=== PATIENT | female | born 1980 | race Caucasian/White ===

== ENCOUNTER 2021-06-13 15:36 | Observation (INO) ==
[2021-06-13] MEDS ORDERED: KETOROLAC TROMETHAMINE 15 MG/ML VIAL IV ONE (16:00)
[2021-06-13] MEDS ORDERED: MoRPHine SULFATE 4 MG/ML 1 ML CARP\\VIAL IV STA (16:00)
[2021-06-13] MEDS ORDERED: SODIUM CHLORIDE 0.9% 1000ML 1,000 ML IV SCH (16:01)
--- NOTE | 2021-06-13 16:15 | Emergency Department Note ---
Impression & Plan Post-operative pain, S/P ureteral stent placement, Left flank pain ED Provider Note CHIEF COMPLAINT: Left flank pain HISTORY OF PRESENT ILLNESS: Gena Hernandez is a 41 year old female with history of 10 mm calculus in the left UVJ s/p ureteral stent placement by Dr. Veloz earlier this afternoon who presents to the Emergency Department for evaluation of severe pain to her left flank radiating to her left lower abdominal quadrant which she developed about 2 hours prior to arrival. The patient states that she was initially feeling well following her procedure, however, about 20 minutes after leaving the hospital she then developed the severe pain to her left flank. She did take Oxybutynin and Tylenol without relief of her symptoms. 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 Currently, she rates her discomfort as a 10/10 which worsens with movements. She denies having any fevers/chills, chest pain, shortness of breath, palpitations, nausea, vomiting or diarrhea. She has urinated x 1 since the procedure and noted some burning pains and humrea blood. No other acute complaints. REVIEW OF SYSTEMS: 10 systems were reviewed and were negative unless otherwise stated in HPI as above PHYSICAL EXAM: VITALS: Vitals are noted on the nurse's note and reviewed by myself. Vital signs stable. General: Writhing around in bed, complaining of pain to her left flank HEENT: Normocephalic, atraumatic, PERRL, EOMI, mucous membranes moist, oropharynx clear Neck: Supple, non-tender Resp: Good inspiratory effort on room air, lung sounds clear bilaterally CV: Regular rate and rhythm, peripheral pulses palpated Back: Tender to palpation and percussion over the left flank, right side non- tender Abd: Soft, non-distended, tender to palpation over the left lower quadrant, no rebound, guarding or rigidity MSK: Moving all extremities without apparent pain or difficulty Integumentary: Warm, dy, no appreciable rashes Neuro: Awake, alert and oriented x 3, interacting and answering questions appropriately Differential diagnosis includes post-operative pain, ureteral stent dislodgement/occlusion, renal colic, nephrolithiasis, urinary tract infection, pyelonephritis, among others were considered EMERGENCY DEPARTMENT COURSE: Physical exam and history were performed. Nursing triage notes, EMR, and medication list were personally reviewed. Patient appears to have severe pain to her left flank radiating into her left lower abdominal quadrant which she developed about 2 hours prior to arrival status post left ureteral stent placement for a 10 mm calculus in the left UVJ with Dr. Veloz earlier this afternoon. Additional history as described above. On exam, she was writhing around in bed, complaining of pain to her left flank. She did have tenderness to palpation and percussion over the left flank, right side nontender. Her abdomen was soft, nondistended, tender to palpation over the left lower quadrant. No rebound, guarding or rigidity. No other significant findings on exam. IV access was established and the patient was given NSS 1 L, Toradol 15 mg, and morphine 4 mg. Labs were obtained and reviewed by myself as below. Of note, she does have mild leukocytosis with a WBC of 11.25, likely from surgery today. No concern for anemia with hemoglobin 14.8. Electrolytes WNL. Renal indices stable. LFTs nondiagnostic. I did contact Dr. Veloz of urology and discussed the patient's case. He recommended adding a dose of Flomax and trying to get her pain under control. He did not recommend additional imaging or work-up at this time. The patient was administered Flomax. Upon reevaluation, she was still having discomfort. She was given a dose of oxycodone 5 mg to see if her pain could be controlled without IV medications. Upon reevaluation, the patient was still having discomfort and stated that it was now becoming worse. I did call Dr. Veloz back and he agreed to evaluate the patient at bedside. Following Dr. Veloz's evaluation and discussion at bedside, he decided to admit the patient to the hospital for ongoing management. The patient verbalized understanding and agreement with the treatment plan as above. The chart was completed utilizing [employer] Speech Voice Recognition Software. Grammatical errors, random word insertions, pronoun errors, and incomplete sentences are an occasional consequence of this system due to software limitations, ambient noise, and hardware issues. Any formal questions or concerns about the content, text, or information contained within the body of this dictation should be directly addressed to the provider for clarification. Past Med/Surg History Medical History History of COVID-19 02/2021>MILD SYMPTOMS *FEELING BETTER Kidney stones Surgical History H/O wisdom tooth extraction S/P ureteral stent placement Family History Other No family history of adverse response to anesthesia Social History Smoking Status: Current some day smoker Tobacco Type: Cigarettes Cigarettes Per Day: SMOKES OCCAS. 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 Beliefs That Will Affect Care: None marital status: Current Living Situation: Family current occupational status: employed Feels Safe at Home: Yes Safety Concerns: Feels Safe At This Time Assistive Devices: None Allergies Allergies Allergy/AdvReac Type Severity Reaction Status Date / Time Penicillins Allergy Mild Rash Verified 06/13/21 17:58 Home Meds Home Medications Medication Instructions Recorded Confirmed ibuprofen 200 mg tablet 800 mg PO Q6H PRN 06/12/21 06/13/21 multivitamin 1 tab PO QAM 06/12/21 06/13/21 ondansetron HCl 4 mg tablet 4 mg PO Q6H PRN 06/12/21 06/13/21 Previous Rx's Medication Instructions Recorded docusate sodium 100 mg capsule 100 mg PO BID #20 cap 06/13/21 (Col-Rite) oxybutynin chloride 5 mg 5 mg PO DAILY #20 tab 06/13/21 tablet,extended release 24 hr (Ditropan XL) oxycodone 5 mg capsule 5 mg PO Q6H PRN #15 tab 06/13/21 sulfamethoxazole 800 1 tab PO BID PRN 3 Days #6 tab 06/13/21 mg-trimethoprim 160 mg tablet (Bactrim DS) tamsulosin 0.4 mg capsule (Flomax) 0.4 mg PO DAILY #20 cap 06/13/21 Results & Data (ED) Vital Signs Vital Signs - 24 hr 06/13/21 15:39 06/13/21 17:36 Temperature 36.7 C Temperature Source Temporal Artery Scan Pulse Rate 95 H Pulse Rate [Apical] 60 Pulse Rhythm Regular Pulse Strength Normal Respiratory Rate 20 18 Respiratory Effort / Characteristics Non-Labored Spontaneous Respiratory Depth Normal Respiratory Pattern Regular Blood Pressure 129/82 Blood Pressure [Left Arm] 115/75 Blood Pressure Mean 97 Blood Pressure Mean [Left Arm] 88 Blood Pressure Position Sitting Pulse Oximetry 96 98 Oxygen Delivery Method Room Air Room Air Sepsis Recent Fever Within 48 Hours No Sepsis New/Unexplained Change in Mental Status N/A Sepsis Action Taken by Nursing No Action Required Laboratory Data Result diagrams: 06/13/21 15:45 06/13/21 15:45 Lab Results 06/13/21 06/13/21 Range/Units 15:45 15:45 WBC 11.25 H (4.8-10.8) K/uL RBC 4.64 (4.2-5.4) M/uL Hgb 14.8 (12.0-16.0) g/dL Hct 43.8 (37-47) % MCV 94.4 (80-100) fL MCH 31.9 (25-34) pg MCHC 33.8 (32-36) g/dL RDW Std Deviation 43.8 (36.4-46.3) fL RDW Coeff of Aime 12.7 (11.5-14.5) % Plt Count 335 (130-400) K/uL MPV 10.6 H (7.4-10.4) fL Immature Gran % (Auto) 0.2 % Neut % (Auto) 88.3 % Lymph % (Auto) 10.3 % Peach % (Auto) 0.9 % Eos % (Auto) 0.1 % Baso % (Auto) 0.2 % Neut # (Auto) 9.94 H (1.4-6.5) K/uL Lymph # (Auto) 1.16 L (1.2-3.4) K/uL Peach # (Auto) 0.10 L (0.11-0.59) K/uL Eos # (Auto) 0.01 (0-0.5) K/uL Baso # (Auto) 0.02 (0-0.2) K/uL Immature Gran # (Auto) 0.02 (0.00-0.02) K/uL Sodium 138 (136-145) mmol/L Potassium 4.1 (3.5-5.1) mmol/L Chloride 107 (98-107) mmol/L Carbon Dioxide 26 (21-32) mmol/L Anion Gap 5 (3-11) BUN 13 (6-23) mg/dl Creatinine 0.85 (0.6-1.2) mg/dl Est Cr Clr Drug Dosing Not Reportable Est GFR ( Amer) 98.6 ml/min Est GFR (Non-Af Amer) 85.1 ml/min BUN/Creatinine Ratio 15.3 (10-20) Glucose 130 H (70-99(Fasting)) mg/dl Calcium 9.9 (8.5-10.1) mg/dl Total Bilirubin 0.4 (0.2-1.0) mg/dl AST 27 (13-39) U/L ALT 44 (7-52) U/L Alkaline Phosphatase 57 (34-104) U/L Total Protein 7.2 (6.0-8.3) gm/dl Albumin 4.5 (3.4-5.0) gm/dl Globulin 2.7 (2.5-4.0) gm/dl Albumin/Globulin Ratio 1.7 (0.9-2) Administered Medications Acetaminophen (Acetaminophen 500 Mg Tab) 1,000 mg PO Q8H ZEUS Stop: 07/13/21 21:59 Last Admin: 06/14/21 05:37 Dose: 1,000 mg Documented by: [id number] Admin: 06/13/21 22:24 Dose: 1,000 mg Documented by: [id number] Ketorolac Tromethamine (Ketorolac Tromethamine 15 Mg/Ml Vial) 15 mg IV Q6H ZEUS Stop: 06/18/21 21:59 Last Admin: 06/14/21 05:37 Dose: 15 mg Documented by: [id number] Admin: 06/13/21 23:23 Dose: 15 mg Documented by: [id number] Oxycodone HCl (Oxycodone Hcl Ir 5 Mg Tab (Immediate Release)) 5 mg PO Q6H PRN PRN Reason: Pain Stop: 06/27/21 18:11 Last Admin: 06/14/21 04:03 Dose: 5 mg Documented by: [id number] Admin: 06/13/21 22:25 Dose: 5 mg Documented by: [id number] Trimethoprim/Sulfamethoxazole (Sulfamethoxazole/Trimethoprim Ds 800/160mg Tab) 1 tab PO Q12 ZEUS Stop: 06/15/21 21:29 Last Admin: 06/14/21 09:09 Dose: 1 tab Documented by: [id number] Admin: 06/13/21 22:24 Dose: 1 tab Documented by: [id number] Discontinued Medications Hydromorphone HCl (Hydromorphone Inj 0.5 Mg/0.5 Ml Syr) 0.5 mg IV Q6H PRN PRN Reason: Pain Stop: 06/27/21 18:18 Last Admin: 06/13/21 19:17 Dose: 0.5 mg Documented by: [id number] Sodium Chloride (Nss 1000ml) 1,000 mls @ 999 mls/hr IV .Q1H1M ZEUS Stop: 06/13/21 17:01 Last Infusion: 06/13/21 17:09 Dose: 0 mls/hr Documented by: [id number] Admin: 06/13/21 16:06 Dose: 999 mls/hr Documented by: [id number] Lactated Ringer's (Lr) 1,000 mls @ 75 mls/hr IV .[id number] ZEUS Stop: 07/13/21 18:14 Last Admin: 06/14/21 10:19 Dose: Not Given Documented by: [id number] Infusion: 06/14/21 10:18 Dose: 0 mls/hr Documented by: [id number] Infusion: 06/14/21 07:08 Dose: 75 mls/hr Documented by: [id number] Admin: 06/13/21 19:24 Dose: 75 mls/hr Documented by: [id number] Ketorolac Tromethamine (Ketorolac Tromethamine 15 Mg/Ml Vial) 15 mg IV NOW ONE Stop: 06/13/21 16:01 Last Admin: 06/13/21 16:05 Dose: 15 mg Documented by: [id number] Morphine Sulfate (Morphine Sulfate 4 Mg/Ml 1 Ml Carp\Vial) 4 mg IV NOW STA Stop: 06/13/21 16:01 Last Admin: 06/13/21 16:06 Dose: 4 mg Documented by: [id number] Oxycodone HCl (Oxycodone Hcl Ir 5 Mg Tab (Immediate Release)) 5 mg PO NOW STA Stop: 06/13/21 17:16 Last Admin: 06/13/21 17:37 Dose: 5 mg Documented by: [id number] Tamsulosin HCl (Tamsulosin Hcl 0.4 Mg Cap) 0.4 mg PO NOW ONE Stop: 06/13/21 16:28 Last Admin: 06/13/21 17:00 Dose: 0.4 mg Documented by: [id number] Discharge Plan Visit Data Chief Complaint: Flank Pain Stated Complaint: STENT PUT IN THIS AM, NOW IN SEVERE PAIN ED Provider: Lucas Sandoval ED Midlevel Provider: Diane Salcedo Discharge Problem: Post-operative pain, S/P ureteral stent placement, Left flank pain Patient Disposition: Admitted As Inpatient Discharge Instructions Interventions: ED Discharge Assessment Last Done: 06/13/21 20:44
[2021-06-13] MEDS ORDERED: TAMSULOSIN HCL 0.4 MG CAP PO ONE (16:27)
[2021-06-13 16:46] LABS: Basophils # (auto) 0.02 K/uL (0-0.2); Basophils % (auto) 0.2 %; Eosinophils # (auto) 0.01 K/uL (0-0.5); Eosinophils % (auto) 0.1 %; Hematocrit (blood only) 43.8 % (37-47); Hemoglobin 14.8 g/dL (12.0-16.0); Immature Granulocytes # (auto) 0.02 K/uL (0.00-0.02); Immature Granulocytes % (auto) 0.2 %; Lymphocytes # (auto) 1.16 K/uL (1.2-3.4); Lymphocytes % (auto) 10.3 %; Mean Corpuscular Hemoglobin 31.9 pg (25-34); Mean Corpuscular Hgb Conc 33.8 g/dL (32-36); Mean Corpuscular Volume 94.4 fL (80-100); Mean Platelet Volume 10.6 fL (7.4-10.4); Monocytes % (auto) 0.9 %; Neutrophils # (auto) 9.94 K/uL (1.4-6.5); Neutrophils % (auto) 88.3 %; Platelet Count 335 K/uL (130-400); RDW Coefficient of Variation 12.7 % (11.5-14.5); RDW Standard Deviation 43.8 fL (36.4-46.3); Red Blood Count 4.64 M/uL (4.2-5.4); White Blood Count 11.25 K/uL (4.8-10.8)
[2021-06-13 17:04] LABS: Alanine Aminotransferase 44 U/L (7-52); Albumin Globulin Ratio 1.7 (0.9-2); Albumin Level 4.5 gm/dl (3.4-5.0); Alkaline Phosphatase 57 U/L (34-104); Anion Gap 5 (3-11); Aspartate Aminotransferase 27 U/L (13-39); BUN Creatinine Ratio 15.3 (10-20); Bilirubin,Total 0.4 mg/dl (0.2-1.0); Blood Urea Nitrogen 13 mg/dl (6-23); Calcium 9.9 mg/dl (8.5-10.1); Carbon Dioxide 26 mmol/L (21-32); Chloride 107 mmol/L (98-107); Est GFR (African American) 98.6 ml/min; Est GFR (Non-African American) 85.1 ml/min; Globulin 2.7 gm/dl (2.5-4.0); Glucose 130 mg/dl (70-99(Fasting)); Potassium 4.1 mmol/L (3.5-5.1); Sodium 138 mmol/L (136-145); Total Protein 7.2 gm/dl (6.0-8.3)
[2021-06-13] MEDS ORDERED: oxyCODONE HCL IR 5 MG TAB (IMMEDIATE RELEASE) PO STA (17:15)
[2021-06-13] MEDS ORDERED: ONDANSETRON INJ 2 MG/ML 2 ML VIAL IV PRN (18:06)
[2021-06-13] MEDS ORDERED: HYDROmorphone INJ 0.5 MG/0.5 ML SYR IV PRN (18:19)
--- NOTE | 2021-06-13 18:26 | History & Physical Report ---
Date of Service June 13, 2021 Assessment & Plan (1) Kidney stone: (2) Complication of urinary stent: Plan: 41-year-old female status post cystoscopy with left ureteral stent placement today for left distal ureteral calculus who presented to the ED with intractable left stent colic. Plan: 1. Admit to urology on the floor 2. Pain control with scheduled Tylenol and Toradol. As needed Dilaudid, oxycodone and Zofran. She received Flomax and Ditropan prior to admission and is not due for this for another 24 hours. 3. Regular diet 4. IV fluids LR 75 an hour 5. Did offer her Coreas catheter for comfort but she declined at this time. She is voiding spontaneously. 6. Bactrim twice daily for prophylaxis until culture finalizes 7. Hope is that pain control will be improved tomorrow morning and she will be stable for discharge. She is scheduled for definitive stone treatment on 06/21/2021. 8. I had a lengthy discussion with her and her explaining reasoning for stent placement and why we cannot go back and treat the stone acutely. They expressed understanding. History of Present Illness Chief Complaint: Left ureteral stent colic Primary Care Provider: Ángel Iam 41-year-old female who is status post cystoscopy with left retrograde pyelogram and left ureteral stent placement for a left distal ureteral calculus earlier today at the surgery center. On her way home, she developed intractable left flank pain and presented to the emergency department. She was afebrile with stable vitals. Labs showed a mild leukocytosis of 11 which is not uncommon postoperatively and creatinine was stable at 0.85. She was given Toradol, morphine, and flomax without significant improvement in her symptoms. I had a long discussion with her and her and offered her admission for pain control, which they agreed upon. I originally saw her on 06/11/2021 in clinic and outside renal ultrasound showed a left distal ureteral calculus. As she was significantly uncomfortable, I offered to add her onto my OR schedule 2 days later (today, 06/13/2021) with the caveat that if urine culture is not finalized I would only be able to place a stent. I also attempted to get a CT scan in the interim but her insurance would not approve it. Unfortunately the urine culture was still pending today so I explained it would not be safe to attempt to treat the stone and we agreed upon stent placement. Her stent procedure was without complication. Allergies Allergy/AdvReac Type Severity Reaction Status Date / Time Penicillins Allergy Mild Rash Verified 06/13/21 17:58 Home Medications Medication Instructions Recorded Confirmed Type ibuprofen 200 mg tablet 800 mg PO Q6H PRN 06/12/21 06/13/21 History multivitamin 1 tab PO QAM 06/12/21 06/13/21 History ondansetron HCl 4 mg tablet 4 mg PO Q6H PRN 06/12/21 06/13/21 History docusate sodium 100 mg capsule 100 mg PO BID #20 cap 06/13/21 06/13/21 Rx (Col-Rite) oxybutynin chloride 5 mg 5 mg PO DAILY #20 tab 06/13/21 06/13/21 Rx tablet,extended release 24 hr (Ditropan XL) oxycodone 5 mg capsule 5 mg PO Q6H PRN #15 tab 06/13/21 Rx sulfamethoxazole 800 1 tab PO BID PRN 3 Days #6 tab 06/13/21 06/13/21 Rx mg-trimethoprim 160 mg tablet (Bactrim DS) tamsulosin 0.4 mg capsule (Flomax) 0.4 mg PO DAILY #20 cap 06/13/21 06/13/21 Rx Past Med/Surg History Medical History History of COVID-19 02/2021>MILD SYMPTOMS *FEELING BETTER Kidney stones Surgical History H/O wisdom tooth extraction S/P ureteral stent placement Family History Other No family history of adverse response to anesthesia Social History Smoking Status: Current some day smoker Tobacco Type: Cigarettes Cigarettes Per Day: SMOKES OCCAS. 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 Beliefs That Will Affect Care: None marital status: Current Living Situation: Family current occupational status: employed Feels Safe at Home: Yes Assistive Devices: None Review of Systems 14 point review of systems negative outside of what is listed above in HPI Physical Exam Physical Exam: General: Alert and oriented, no acute distress HEENT: Normocephalic, mucous membranes moist Cardiovascular: Regular rate Pulmonary: Nonlabored respirations Abdomen: Nondistended Extremities: Moves all 4 spontaneously Neuro: No gross deficits Skin: Warm, dry, no rashes noted Results & Data ([facility]) Vital Signs (Past 12 Hours) Vital Signs Temp Pulse Pulse Resp BP BP Pulse Ox 06/13/21 17:36 60 18 115/75 98 06/13/21 15:39 36.7 C 95 H 20 129/82 96 Code Status & VTE Plan VTE Prophylaxis Plan VTE Prophylaxis will be ordered: No PG Care Time/CCT Total # of Minutes Spent Total Time Spent with Patient: Total time spent is greater than 50% in coordination of care (as documented) at patient's floor/unit and/or counseling patient: [place] [address] Initial Inpt Care Lvl 2 Patient Type Established Diagnoses Kidney stone N20.0 Complication of urinary stent T83.9XXA
[2021-06-13] MEDS: LACTATED RINGER'S 1,000 ML IV SCH (19:24)
[2021-06-13] MEDS: SULFAMETHOXAZOLE/TRIMETHOPRIM DS 800/160MG TAB PO SCH (22:24)
[2021-06-13] MEDS: ACETAMINOPHEN 500 MG TAB PO SCH (22:24)
[2021-06-13] MEDS: oxyCODONE HCL IR 5 MG TAB (IMMEDIATE RELEASE) PO PRN (22:25)
[2021-06-13 22:55] LABS: Appearance Urine Clear (Clear); Bacteria Urine Automated Negative (Negative); Bilirubin Urine Negative (Negative); Blood Urine 3+ (Negative); Color Urine Orange; Epithelial Cell Urine Auto 20-30 /lpf (0-5); Glucose Urine UA Negative (Negative); Ketones Urine Negative (Negative); Leukocyte Esterase Urine Trace (Negative); Nitrite Urine Negative (Negative); Protein Urine 1+ (Negative); RBC Urine Automated >30 /hpf (0-4); Specific Gravity Urine 1.007 (1.000-1.030); Urobilinogen Urine Negative (Negative); pH Urine 6.5 (4.5-7.5)
[2021-06-13] MEDS: KETOROLAC TROMETHAMINE 15 MG/ML VIAL IV SCH (23:23)
[2021-06-14] MEDS: oxyCODONE HCL IR 5 MG TAB (IMMEDIATE RELEASE) PO PRN (04:03)
[2021-06-14] MEDS: ACETAMINOPHEN 500 MG TAB PO SCH ×2 (05:37→13:14)
[2021-06-14] MEDS: KETOROLAC TROMETHAMINE 15 MG/ML VIAL IV SCH ×3 (05:37→16:15)
--- NOTE | 2021-06-14 08:19 | Discharge Summary ---
Date of Service June 14, 2021 Admission HPI Per Admitting Provider 41-year-old female who is status post cystoscopy with left retrograde pyelogram and left ureteral stent placement for a left distal ureteral calculus earlier today at the surgery center. On her way home, she developed intractable left flank pain and presented to the emergency department. She was afebrile with stable vitals. Labs showed a mild leukocytosis of 11 which is not uncommon postoperatively and creatinine was stable at 0.85. She was given Toradol, morphine, and flomax without significant improvement in her symptoms. I had a long discussion with her and her and offered her admission for pain control, which they agreed upon. I originally saw her on 06/11/2021 in clinic and outside renal ultrasound showed a left distal ureteral calculus. As she was significantly uncomfortable, I offered to add her onto my OR schedule 2 days later (today, 06/13/2021) with the caveat that if urine culture is not finalized I would only be able to place a stent. I also attempted to get a CT scan in the interim but her insurance would not approve it. Unfortunately the urine culture was still pending today so I explained it would not be safe to attempt to treat the stone and we agreed upon stent placement. Her stent procedure was without complication. Admission Exam Per Admitting Provider General: Alert and oriented, no acute distress HEENT: Normocephalic, mucous membranes moist Pulmonary: Nonlabored respirations Abdomen: Nondistended Extremities: Moves all 4 spontaneously Neuro: No gross deficits Skin: Warm, dry, no rashes noted Principal Diagnosis Left ureteral stent colic Discharge Exam General: Alert and oriented, no acute distress HEENT: Normocephalic, mucous membranes moist Pulmonary: Nonlabored respirations Abdomen: Nondistended Extremities: Moves all 4 spontaneously Neuro: No gross deficits Skin: Warm, dry, no rashes noted Discharge Data Allergies Allergy/AdvReac Type Severity Reaction Status Date / Time Penicillins Allergy Mild Rash Verified 06/13/21 17:58 Consultations 06/13/21 18:38 ED Decision to Admit Stat Hospital Course (1) Post-operative pain: (2) S/P ureteral stent placement: (3) Left flank pain: (4) Complication of urinary stent: (5) Kidney stone: 41-year-old female status post cystoscopy with left ureteral stent placement on 06/13/2021. Presented to the emergency department with intractable left flank pain due to stent colic. Admitted for pain control. Pain control was improved and patient was deemed stable for discharge home on 06/14/2021. Continue home pain regimen in anticipation of stone treatment on 06/21/2021. Total Time Total Time Spent Total Time Spent (In Minutes): 10 Discharge Plan Discharge Items Patient Disposition: Home - Self-Care Reason For Visit: URETERAL STENT COLIC Discharge Diagnosis: Left ureteral stent colic Left nephrolithiasis Activity: Resume your previous activity Lifting: Gradually increase as tolerated Bathing: No limitations Sexual Activity: When tolerated Exercise/Sports: Gradually increase as tolerated Driving/Machine Use: No limitations Weightbearing: Full weightbearing Non-emergency contact: Urologist Call non-emergency contact if: you have any medication questions, your symptoms worsen, your pain is not controlled and your temperature is above 101 Follow-up/Referrals: Ángel Vitale [Primary Care Provider] - Diet: Regular Addtl Attending Provider Instructions: -Take Tylenol and ibuprofen as needed for pain. You can take additional oxycodone if pain is not controlled. -Continue taking Pyridium as needed for stent pain, this will turn your urine orange. Oxybutynin as needed, however this can cause dry mouth, constipation and difficulty urinating so only use when necessary. -Discontinue Tamsulosin. -Take stool softener as needed to prevent constipation. -Finish your 3 days of Bactrim. -It is normal to have blood in his urine while the stent is in place. The more activity performed, the bloody your urine will be. This is okay as long as you are able to urinate. -You are scheduled for stone treatment on 06/21/21. -Call the office with worsening pain or fevers. When to call [facility] at [phone]: Your urine contains heavy blood clots or you are unable to urinate. You are constantly leaking urine. Fever of 101F or higher, chills, nausea, or vomiting. Your pain is not relieved with medication. The end of the stent comes out of your urethra. Please call our office at [phone] with any questions, concerns or need to reschedule appointments for any reason. We are happy to assist you. Pending Studies at Discharge: No Stand-Alone Forms: [facility], Smoking Cessation Medications and DC Order Prescriptions: New phenazopyridine [Pyridium] 100 mg tablet 100 mg PO BID PRN (Reason: pain) Qty: 7 RF: 0 Continued oxycodone 5 mg capsule 5 mg PO Q6H PRN (Reason: pain) Qty: 15 RF: 0 ondansetron HCl 4 mg Tablet 4 mg PO Q6H PRN (Reason: Nausea) RF: 0 ibuprofen 200 mg Tablet 800 mg PO Q6H PRN (Reason: Pain) RF: 0 multivitamin Tablet 1 tab PO QAM RF: 0 docusate sodium [Col-Rite] 100 mg capsule 100 mg PO BID Qty: 20 RF: 0 oxybutynin chloride [Ditropan XL] 5 mg tablet extended release 24 hr 5 mg PO DAILY Qty: 20 RF: 0 sulfamethoxazole-trimethoprim [Bactrim DS] 800-160 mg tablet 1 tab PO BID PRN (Reason: prophylaxis ) 3 Days Qty: 6 RF: 0 Discontinued tamsulosin [Flomax] 0.4 mg capsule 0.4 mg PO DAILY Qty: 20 RF: 0 Discharge Orders: Discharge Order (Routine); Ordered 06/14/21 Ordered By: Lexi Damon/Other Patient Handouts: Healthy Kidneys, Exercise to Help Your Kidneys, How Your Kidneys Work, Identifying Kidney Stones Admission Data Admit Date/Time: 06/13/21 18:06 Attending Provider: Alvin Veloz Admit Provider: Alvin Veloz Primary Care Provider: Ángel Vitale Other Providers: Alvin Veloz Other Interventions: Discharge Summary Assessment (RN) Last Done: 06/14/21 16:16 Coding Level of Care Code D/C DAY MANAGEMENT <30 MINS Diagnoses Post-operative pain G89.18 S/P ureteral stent placement Z96.0 Left flank pain R10.9 Complication of urinary stent T83.9XXA Kidney stone N20.0
--- NOTE | 2021-06-14 09:03 | Urology Progress Note ---
Date of Service June 14, 2021 Assessment & Plan (1) Left flank pain: (2) S/P ureteral stent placement: (3) Complication of urinary stent: Plan: 41-year-old female status post cystoscopy with left ureteral stent placement on 06/13 for left distal ureteral calculus who presented to the ED with intractable left stent colic. - Patient admitted to urology for pain control. - Pain has improved since admission with scheduled Tylenol, Toradol, prn Dilaudid, prn oxycodone. - Will attempt to transition from IV to oral pain medications today. - Will add Tamsulosin, Ditropan, PRN Pyridium for stent management. - Urine culture from 06/11 with pin-point growth, reincubating - Bactrim twice daily for prophylaxis until culture finalizes. - Voiding spontaneously, output appears adequate. Will continue to monitor. - Continue regular diet. - Encourage liberal hydration and ambulation. - Plan for definitive stone treatment as scheduled on 06/21/[address] Veloz. - Will reassess later today and possibly discharge home if pain is controlled. - Pt reassessed this afternoon. - Pain control has improved. - Requesting to be discharged home today. - Reviewed discharge instructions and plan in detail with patient. All questions were answered. - Plan to continue home pain regimen in anticipation of stone treatment on 06/21/2021. - Stable for discharge home today. Admission and Anticipated Discharge Date Admission Date: June 13, 2021 Supervising Physician Co-Signing Physician Notes Discussed patient with ISABEL. Agree with plan. Subjective Pt examined at bedside this AM. Awake, resting in bed on arrival. No acute issues overnight. No fevers. Left flank pain has slightly improved since admission with IV pain medication, but still severe at times or as meds wear off. Voiding spontaneously, reports hematuria and dysuria. Feels she is emptying her bladder well. Denies nausea or vomiting. Denies fevers or chills. No additional complaints at time of exam. Review of Systems Constitutional: as per Subjective / HPI Gastrointestinal: as per Subjective / HPI Genitourinary: as per Subjective / HPI Physical Exam Constitutional: well developed and well nourished; no acute distress Respiratory: normal respiratory effort and able to speak in complete sentences; no labored breathing and no audible wheezes Cardiovascular: Extremities: no calf tenderness Gastrointestinal (Abdomen): Inspection/Auscultation: abdomen normal to inspection; abdomen not distended Musculoskeletal: Head/Neck/Chest: normocephalic Skin: No visible rashes or lesions to exposed skin areas Neurologic: moves all extremities and awake Psychiatric: Orientation: alert, oriented x 3 and cooperative Results & Data ([facility]) Vital Signs (Past 12 Hours) Vital Signs Temp Pulse Resp BP Pulse Ox 06/14/21 07:35 36.9 C 51 L 16 91/57 L 98 06/13/21 22:42 36.2 C L 56 L 16 101/59 L 98 06/13/21 21:03 36.7 C 58 L 20 102/61 100 PG Care Time/CCT Total # of Minutes Spent Total Time Spent with Patient: Total time spent is greater than 50% in coordination of care (as documented) at patient's floor/unit and/or counseling patient: Coding Level of Care Code 84869 Subseq Hosp Care Lvl 2 Diagnoses Left flank pain R10.9 S/P ureteral stent placement Z96.0 Complication of urinary stent T83.9XXA
[2021-06-14] MEDS: SULFAMETHOXAZOLE/TRIMETHOPRIM DS 800/160MG TAB PO SCH (09:09)
[2021-06-14] MEDS ORDERED: PHENAZOPYRIDINE HCL 100 MG TAB PO PRN (09:33)
[2021-06-14] MEDS ORDERED: OXYBUTYNIN CHLORIDE 5 MG TAB PO SCH (09:45)
[2021-06-14] MEDS ORDERED: TAMSULOSIN HCL 0.4 MG CAP PO SCH (09:45)
[2021-06-14] MEDS: LACTATED RINGER'S 1,000 ML IV SCH (10:19)
== END 2021-06-14 16:36 | disposition home or self-care (01) ==
LOC: ED 15:36 → INTOOBSV 18:06 → 3W 18:06